=== PATIENT | female | born 1985 | race Caucasian/White ===

== ENCOUNTER → 2018-11-09 | Outpatient (CLI) | payer OTHER ==
--- NOTE | 2018-11-09 13:21 | US ---
EXAMINATION TYPE: US pelvic complete DATE OF EXAM: 11/09/2018 COMPARISON: NONE CLINICAL HISTORY: 33-year-old female Uterine fibroid D25.9. Pelvic pressure, known fibroids from US w hen patient was in [place], ablation 7 years ago TECHNIQUE: Transabdominal sonographic images of the pelvis were acquired. Date of LMP: 7 years ago FINDINGS: EXAM MEASUREMENTS: Uterus: 17.3 x 14.9 x 8.3 cm Endometrial Stripe: unable to discern Right Ovary: 2.6 x 2.4 x 1.6 cm Left Ovary: 2.9 x 2.1 x 2.3 cm 1. Uterus: Anteverted. Enlarged with multiple fibroids seen, measured 2 largest, right fundal fibr oids = 7.9cm and 6.9cm 2. Endometrium: unable to discern due to multiple shadowing fibroids 3. Right Ovary: wnl 4. Left Ovary: wnl 5. Bilateral Adnexa: wnl 6. Posterior cul-de-sac: wnl IMPRESSION: Bulky fibroid uterus with the 2 largest fibroids in the right fundus measuring up to 8 cm. The endome trial stripe is obscured and not assessed.
== END ==
LOC: RADUSWWP 10:50
PROVIDERS: ATTEND Obstetrics & Gynecology
DX: D25.9 Leiomyoma of uterus, unspecified (principal)
CPT/HCPCS: 76856

== ENCOUNTER → 2019-05-04 | Outpatient (CLI) | payer OTHER ==
[2019-05-04 13:22] LABS: Basophils % (A) 1 %; Eosinophils # (A) 0.2 k/uL (0-0.7); Eosinophils % (A) 2 %; HCT 43.1 % (34.0-46.0); HGB 14.1 gm/dL (11.4-16.0); Lymphocytes # (A) 2.7 k/uL (1.0-4.8); Lymphocytes % (A) 33 %; MCH 29.2 pg (25.0-35.0); MCHC 32.7 g/dL (31.0-37.0); MCV 89.2 fL (80.0-100.0); Mean Platelet Volume 7.6; Monocytes # (A) 0.4 k/uL (0-1.0); Monocytes % (A) 5 %; Neutrophils # (A) 4.7 k/uL (1.3-7.7); Neutrophils % (A) 57 %; Platelet Count 295 k/uL (150-450); RBC 4.83 m/uL (3.80-5.40); WBC 8.2 k/uL (3.8-10.6)
[2019-05-04 13:44] LABS: African American GFR (CKD) >90 (>60 ml/min/1.73 sqM); Anion Gap 10 mmol/L; Blood Urea Nitrogen 10 mg/dL (7-17); Calcium 9.6 mg/dL (8.4-10.2); Carbon Dioxide 23 mmol/L (22-30); Chloride 109 mmol/L (98-107); Glucose 93 mg/dL (74-99); Potassium 4.2 mmol/L (3.5-5.1); Sodium 142 mmol/L (137-145)
== END | disposition home or self-care (01) ==
LOC: LABPAT 12:37
PROVIDERS: ATTEND Obstetrics & Gynecology
DX: Z01.812 Encounter for preprocedural laboratory examination (principal)
CPT/HCPCS: 36415; 80048; 85025

== ENCOUNTER 2019-05-10 05:57 | Inpatient (IN) | payer OTHER ==
[2019-05-10] MEDS ORDERED: CLINDAMYCIN 900 MG in DEXTROSE 5% IN WATER 50 ML IVPB ONE ×2 (06:00)
[2019-05-10] MEDS ORDERED: GENTAMICIN 400 MG in SODIUM CHLORIDE 0.9% 100 ML IVPB ONE (06:00)
[2019-05-10] MEDS ORDERED: MIDAZOLAM 2 MG/2 ML VIAL IV PRN (06:04)
[2019-05-10] MEDS ORDERED: SCOPOLAMINE 1.5MG/72HR PATCH TRANSDERM ONE (06:04)
[2019-05-10] MEDS ORDERED: DEXAMETHASONE SOD PHOSPHATE 10 MG/ML 1 ML VIAL IV ONE (06:04)
[2019-05-10] MEDS ORDERED: ONDANSETRON 4 MG/2 ML VIAL IVP ONE (06:04)
[2019-05-10] MEDS ORDERED: HYDROmorphone 0.5 MG/0.5 ML SYRINGE IVP PRN (06:04)
[2019-05-10] MEDS ORDERED: LIDOCAINE 1% 20 ML VIAL (10MG/ML) FOR IV START INTRADERMA ONE (06:23)
[2019-05-10] MEDS: LACTATED RINGERS 1,000 ML IV SCH ×2 (06:29→21:48)
[2019-05-10] MEDS ORDERED: fentaNYL (PF) 50 MCG/ML 2 ML AMP IVP ONE (06:58)
--- NOTE | 2019-05-10 07:23 | P.HPOB ---
History of Present Illness H&P Date: 05/10/19 Chief Complaint: Fibroid uterus Patient is a 34-year-old female with an 18 week size uterus with heavy bleeding and discomfort. She is scheduled for total abdominal hysterectomy possible bilateral salpingo-oophorectomy due to same. She's had symptoms for a number of years and at this point is unable to continue to function well due to the heavy bleeding and discomfort. She did have a previous NovaSure with no significant relief of symptomatology. Her past medical history is otherwise unremarkable. Past surgical history prior tubal and section 2 as well as a D&C and a cholecystectomy. ALLERGIES to penicillin. Social history none. On physical exam vital signs stable afebrile. Heart regular, lungs clear, extremities without pain. Abdomen soft and nontender. Positive bowel sounds are noted. Uterus is grossly enlarged at 18 weeks' size. Assessment fibroid uterus. Plan total abdominal hysterectomy possible BSO. Past Medical History Past Medical History: Asthma Additional Past Medical History / Comment(s): uterine fibroids History of Any Multi-Drug Resistant Organisms: None Reported Past Surgical History: Section, Cholecystectomy, Uterine Ablation Additional Past Surgical History / Comment(s): c sect x2,wisdom teeth Past Anesthesia/Blood Transfusion Reactions: No Reported Reaction Additional Past Anesthesia/Blood Transfusion Reaction / Comment(s): no hx blood transfusion Smoking Status: Never smoker - Past Family History Mother Family Medical History: No Reported History Father Family Medical History: Cancer Additional Family Medical History / Comment(s): lung,brain Medications and Allergies Home Medications Medication Instructions Recorded Confirmed Type No Known Home Medications 04/29/19 05/10/19 History Allergies Allergy/AdvReac Type Severity Reaction Status Date / Time Penicillins Allergy Anaphylaxis Verified 05/10/19 06:32 shellfish derived Allergy per alg Verified 05/10/19 06:32 testing Exam Osteopathic Statement: *. No significant issues noted on an osteopathic structural exam other than those noted in the History and Physical/Consult. Vital Signs Temp Pulse Resp BP Pulse Ox 05/10/19 06:22 98.6 F 103 H 16 149/100 95
[2019-05-10] MEDS ORDERED: MORPHINE SULFATE (PF) 0.3 MG/0.3 ML SYR ONE (07:30)
[2019-05-10] MEDS ORDERED: PHENYLEPHRINE-0.9% NACL SYG 1 MG/10 ML SYRINGE ONE (07:30)
[2019-05-10] MEDS ORDERED: NEOSTIGMINE 1 MG/ML 10 ML VIAL ONE (07:30)
[2019-05-10] MEDS ORDERED: LIDOCAINE 1% INJ 10MG/ML (20 ML MDV) ONE (07:30)
[2019-05-10] MEDS ORDERED: GLYCOPYRROLATE 0.2 MG/ML 2 ML VIAL ONE (07:30)
[2019-05-10] MEDS ORDERED: PROPOFOL 10 MG/ML 20 ML VIAL IV ONE (07:30)
[2019-05-10] MEDS ORDERED: MIDAZOLAM 2 MG/2 ML VIAL ONE (07:30)
[2019-05-10] MEDS ORDERED: HYDROmorphone (PF) 1 MG/ML ONE (07:30)
[2019-05-10] MEDS ORDERED: fentaNYL (PF) 50 MCG/ML 2 ML AMP ONE (07:30)
[2019-05-10] MEDS ORDERED: ROCURONIUM BROMIDE 10 MG/ML 10 ML VIAL IV ONE (07:30)
[2019-05-10] MEDS ORDERED: NALBUPHINE 10 MG/ML (1 ML AMP) IV PRN (07:58)
[2019-05-10] MEDS ORDERED: NALOXONE 0.4 MG/ML 1 ML VIAL IV PRN (07:58)
[2019-05-10] MEDS ORDERED: KETOROLAC 30 MG/ML 1 ML VIAL IVP PRN (07:58)
[2019-05-10] MEDS ORDERED: ONDANSETRON 4 MG/2 ML VIAL IVP PRN ×2 (07:58→09:02)
[2019-05-10] MEDS ORDERED: LACTATED RINGERS 1,000 ML IV ONE (08:49)
[2019-05-10] MEDS ORDERED: SIMETHICONE 80 MG CHEWABLE PO PRN (09:02)
[2019-05-10] MEDS ORDERED: diphenhydrAMINE 50 MG/ML 1 ML VIAL IVP PRN (09:02)
[2019-05-10] MEDS ORDERED: HYDROcodone/APAP 7.5-325MG 1 EACH TAB PO PRN (09:04)
--- NOTE | 2019-05-10 09:09 | P.OP ---
Date of Procedure: 05/10/19 Preoperative Diagnosis: Fibroid uterus Postoperative Diagnosis: Same Procedure(s) Performed: Total abdominal hysterectomy with bilateral salpingectomy Anesthesia: MANAS Surgeon: Derek Johnson Waistline Joiner Lockstitch #1: Amairani Caballero Estimated Blood Loss (ml): 350 Pathology: other (Uterus cervix and fallopian tubes) Condition: stable Disposition: floor Operative Findings: Grossly enlarged fibroid uterus with bladder adherent high on the uterus from prior sections Description of Procedure: Patient was taken to the operating suite where a general anesthetic was found to be adequate. She was prepped and draped in the normal sterile fashion and placed in dorsal supine position. Initially a Pfannenstiel skin incision was made and this incision was then carried through to underlying layer of the fascia second knife. Fascia was then nicked in the midline and this opening was extended laterally with Streeter scissors. Superior and inferior aspect of this incision were then grasped tented up and bluntly and sharply dissected off the rectus muscles. Rectus muscles were then divided the midline and sharp dissection through the peritoneum was made. This opening was then extended superiorly and inferiorly with good visualization of both bowel bladder. The self-retaining retractor was then inserted and the bladder blade was placed. Once this was accomplished uterus was actually brought out of the pelvis as was so large. Long Yuni clamps were then used to clamp the adnexa bilaterally and Judith clamps then used to clamp over the initially the tubal segments followed by the utero-ovarian ligaments. Tissues then clamped the round ligaments and once this point we were able to start slowly and with very small progress bites along the lateral borders of the uterus to maintain at least relatively good hemostasis as the vascularity and the uterus were very large. Once we got down to the uterine vascularity I did enter the latter flap anteriorly and this was bluntly dissected out of the operative field following extension across face the uterus with Metzenbaum scissor. Once this was accomplished where able to get to the uterine vascularity along the lateral border of the uterus just below where the major fibroids were and this controlled the bleeding very well. Then moving inferiorly along the lateral borders we continued to go through the cardinal and uterosacral ligaments all the way until the vaginal cuff was entered. Once that cuff was entered the stitch was held on the corners and uterus and cervix were removed. Vaginal cuff was then closed with 0 Vicryl suture in a running locking fashion and excellent hemostasis was obtained. Pelvis was then thoroughly irrigated. No bleeding is noted. Bilaterally then the fallopian tubes were elevated with hemostat and clamped off with a Judith and then removed. This was closed with 0 Vicryl suture. Pelvis was then again irrigated and inspected. No bleeding is noted and urine is noted to be clear. All instruments are then removed. Peritoneal layer was then closed with 0 Vicryl suture. Fascial layer was closed with 0 Vicryl suture. One layer of 3-0 Vicryl was placed in deep subcuticular tissues to reapproximate the skin and close that space. Skin was then closed with jeffrey. Sponge, lap, needle counts were all correct 2. Patient was then taken to the recovery room in stable and satisfactory condition.
[2019-05-10 10:29] VITALS: BMI 35.4
[2019-05-10] MEDS: KETOROLAC 30 MG/ML 1 ML VIAL IVP PRN ×3 (10:29→22:16)
[2019-05-10] MEDS: SENNOSIDES-DOCUSATE SODIUM 1 EACH TAB PO SCH (21:27)
[2019-05-11] MEDS: KETOROLAC 30 MG/ML 1 ML VIAL IVP PRN ×2 (04:15→10:03)
[2019-05-11] MEDS: SENNOSIDES-DOCUSATE SODIUM 1 EACH TAB PO SCH ×2 (08:52→20:27)
--- NOTE | 2019-05-11 09:03 | P.PN ---
Progress Note - Text Progress Note Date: 05/11/19 Postop day 1. Patient is doing very well postop day 1. She is involuting and voiding. She is tolerating a diet. She has not passed flatus at this time but is voicing no complaints. Vital signs are stable afebrile. Heart regular, lungs clear, extremities without pain. We'll plan to remove dressing later today and continue with ambulation. All other questions are answered for her at this time area assessment postop day 1. Plan continue care with potential discharged home tomorrow.
[2019-05-11] MEDS ORDERED: IBUPROFEN 800 MG TAB PO PRN (09:04)
--- NOTE | 2019-05-11 10:57 | CDI ---
There are multiple fibroids present. several of which are sub-mucosal. there are also sub serosal fibroids present. the uterus was 18-20 weeks size. Documentation Clarification Form Date: 05/11/2019 10:24:20 AM From: Angelica Landis RN, CCDS Admit Date: 05/10/2019 5:57:00 AM Patient Name: Sarah Hernandez Visit Number: [id number] Discharge Date: ATTENTION: The Clinical Documentation Specialists (CDI) and [facility] Coding Staff appreciate your assistance in clarifying documentation. Please respond to the clarification below the line at the bottom and electronically sign. The CDI & [facility] Coding staff will review the response and follow-up if needed. Please note: Queries are made part of the Legal Health Record. If you have any questions, please contact the author of this message via ITS. Dr. Derek Johnson The patient presented with a preoperative diagnosis of fibroid uterus, and they are generally classified by their location. History/Risk Factors: Uterine Fibroids, Asthma Clinical Indicators: 34-year-old female with an 18 week size uterus with heavy bleeding and discomfort. She's had symptoms for a number of years and present for an elective total abdominal hysterectomy, bilateral salpingo-oophorectomy. Vital Signs: 129/82 72 20 97.2 96 % RA Treatment: Total abdominal hysterectomy with bilateral salpingectomy Monitor Vital signs Toradol IV Prn In your professional opinion, to accurately code the procedure can you please further clarify the location of the uterine fibroids as? Interstitial, Intramural Submucous Subperitoneal Subserosal Other, please specify Unable to determine (Last Revision: February 2018) MTDD
--- NOTE | 2019-05-11 11:33 | P.PN ---
Progress Note - Text Progress Note Date: 05/11/19 05/11/2019 0630 Patient is POD #1 QUINN/BSO with SAB Duramorph and GA/OETT Patient sitting up in bed without any complaints. VAS 2-3/10 and relieved with Toradol 30 mg IVP Patient denies any fever/chills, paresthesias, residual numbness and/or back pain Patient satisfied with anesthesia for her surgical repair and pleased with her pain control/pain relief To be discharged to home on 05/12/19 Will follow up as indicated.
[2019-05-11 11:55] LABS: Basophils % (A) 0 %; Eosinophils # (A) 0.1 k/uL (0-0.7); Eosinophils % (A) 1 %; HCT 31.6 % (34.0-46.0); Lymphocytes # (A) 1.8 k/uL (1.0-4.8); Lymphocytes % (A) 19 %; MCH 31.3 pg (25.0-35.0); MCHC 34.7 g/dL (31.0-37.0); MCV 90.2 fL (80.0-100.0); Mean Platelet Volume 7.6; Monocytes # (A) 0.6 k/uL (0-1.0); Monocytes % (A) 6 %; Neutrophils # (A) 6.9 k/uL (1.3-7.7); Neutrophils % (A) 72 %; Platelet Count 184 k/uL (150-450); RDW 13.7 % (11.5-15.5); WBC 9.5 k/uL (3.8-10.6)
[2019-05-12] MEDS: IBUPROFEN 400 MG TAB PO PRN ×2 (03:04→09:05)
[2019-05-12 04:20] VITALS: TEMP 97.7
[2019-05-12] MEDS: LACTATED RINGERS 1,000 ML IV SCH (07:20)
[2019-05-12] MEDS: SENNOSIDES-DOCUSATE SODIUM 1 EACH TAB PO SCH (08:20)
[2019-05-12 08:38] VITALS: BP 137/85; PULSE 85; RESP 16
--- NOTE | 2019-05-12 08:48 | P.DS ---
Providers Date of admission: 05/10/19 05:57 Expected date of discharge: 05/12/19 Attending physician: Derek Johnson Primary care physician: Stated None Hospital Course: Patient is doing very well postop day 2. She is involuting, voiding and tolerating her diet. She voices no complaints. Vital signs stable and afebrile. Heart regular, lungs clear, extremities without pain. Abdomen soft nontender incision is clean dry and intact. Assessment postop day 2. Plan discharged home follow up with me in 1 week. All questions are answered for this time. Prescription for Motrin and [place] are provided. Patient Condition at Discharge: Good Plan - Discharge Summary Discharge Rx Participant: Yes New Discharge Prescriptions: New Ibuprofen [Motrin] 600 mg PO Q6HR PRN #30 tab PRN Reason: Pain HYDROcodone/APAP 5-325MG [[place] 5-325] 1 tab PO Q4HR PRN #30 tab PRN Reason: Pain Discharge Medication List HYDROcodone/APAP 5-325MG [[place] 5-325] 1 tab PO Q4HR PRN #30 tab 05/12/19 [Rx] Ibuprofen [Motrin] 600 mg PO Q6HR PRN #30 tab 05/12/19 [Rx] Follow up Appointment(s)/Referral(s): Derek Johnson DO [Doctor of Osteopathic Medicine] - 1 Week Activity/Diet/Wound Care/Special Instructions: No heavy lifting, limit stairs and driving, and complete pelvic rest. If any high temperatures, heavy bleeding or severe pain call my office
== END 2019-05-12 10:14 | disposition home or self-care (01) | DRG 743 ==
LOC: 2ORMAIN 05:57 → 6PED 09:05
PROVIDERS: ADMIT Obstetrics & Gynecology; ATTEND Obstetrics & Gynecology
PROC: 0UT70ZZ Resection of Bilateral Fallopian Tubes, Open Approach (ICD-10-PCS; 2019-05-10)
PROC: 0UT90ZZ Resection of Uterus, Open Approach (ICD-10-PCS; principal; 2019-05-10 07:30)
DX: D25.0 Submucous leiomyoma of uterus (principal); D25.2 Subserosal leiomyoma of uterus; J45.909 Unspecified asthma, uncomplicated; N93.8 Other specified abnormal uterine and vaginal bleeding; Z88.0 Allergy status to penicillin; Z98.891 History of uterine scar from previous surgery; Z91.013 Allergy to seafood; Z90.49 Acquired absence of other specified parts of digestive tract; Z80.9 Family history of malignant neoplasm, unspecified
CPT/HCPCS: 81025; 85025; 86850; 86900; 86901; 88307; 94760

== ENCOUNTER 2024-09-13 08:09 | Emergency (ER) | payer OTHER ==
[2024-09-13 08:15] VITALS: RESP 18
[2024-09-13 09:06] LABS: Basophils % (A) 0 %; Eosinophils # (A) 0.2 k/uL (0-0.7); Eosinophils % (A) 2 %; HCT 44.5 % (34.0-46.0); HGB 14.4 gm/dL (11.4-16.0); Lymphocytes # (A) 2.2 k/uL (1.0-4.8); Lymphocytes % (A) 21 %; MCH 29.9 pg (25.0-35.0); MCHC 32.5 g/dL (31.0-37.0); MCV 92.3 fL (80.0-100.0); Mean Platelet Volume 7.4; Monocytes # (A) 0.4 k/uL (0-1.0); Monocytes % (A) 4 %; Neutrophils # (A) 7.4 k/uL (1.3-7.7); Neutrophils % (A) 70 %; Platelet Count 253 k/uL (150-450); RBC 4.82 m/uL (3.80-5.40); RDW 13.1 % (11.5-15.5); WBC 10.5 k/uL (3.8-10.6)
[2024-09-13 09:14] LABS: INR 0.9 (<1.2); Prothrombin Time 9.8 sec (10.0-12.5)
[2024-09-13] MEDS: SODIUM CHLORIDE 0.9% 1,000 ML IV STA (09:17)
[2024-09-13 09:18] LABS: Appearance,Urine Clear (Clear); Bilirubin,Urine Negative (Negative); Blood,Urine Negative (Negative); Color,Urine Colorless; Glucose,Urine (UA) Negative (Negative); Ketones,Urine Negative (Negative); Leukocyte Esterase,Urine Negative (Negative); Nitrite,Urine Negative (Negative); PH, Urine 6.5 (5.0-8.0); Protein,Urine Negative (Negative); Specific Gravity,Urine 1.011 (1.001-1.035); Urobilinogen,Urine <2.0 mg/dL (<2.0)
[2024-09-13] MEDS: MECLIZINE 12.5 MG TAB PO STA (09:18)
--- NOTE | 2024-09-13 09:18 | ED ---
Dizziness HPI - General Chief Complaint: Dizziness Stated Complaint: Dizziness Time Seen by Provider: 09/13/24 08:15 Source: patient, RN notes reviewed Mode of arrival: ambulatory Limitations: no limitations - History of Present Illness Initial Comments: This is a 39-year-old female who presents to the emergency department for dizziness. Patient states that 2 days ago she had some mild dizziness and when she woke up the following day it was much more substantial. This is described as a room spinning sensation that is worse with positional changes. She has associated nausea. States that she almost feels like she is intoxicated when she is not. Denies any headaches, chest pain, or shortness of breath. Denies any URI symptoms or history of vertigo. Blood pressure noted to be substantially elevated on arrival. Not currently taking anything for blood pressure. States that it is usually high when she is seen in a healthcare setting. MD Complaint: dizziness - Related Data Home Medications Medication Instructions Recorded Confirmed Cetirizine HCl [Zyrtec] 10 mg PO DAILY 09/13/24 09/13/24 Cyanocobalamin (Vitamin B-12) 1,000 mcg PO DAILY 09/13/24 09/13/24 [Vitamin B-12] Ferrous Sulfate [Feosol] 325 mg PO DAILY 09/13/24 09/13/24 Multivitamins, Thera [Multivitamin 1 tab PO DAILY 09/13/24 09/13/24 (formulary)] Previous Rx's Medication Instructions Recorded Meclizine HCl [Dramamine] 25 mg PO QID PRN #30 tab 09/13/24 Metoclopramide [Reglan] 10 mg PO Q6H PRN #30 tab 09/13/24 Ondansetron Odt [Zofran Odt] 4 mg PO Q8HR PRN #20 tab 09/13/24 Allergies Allergy/AdvReac Type Severity Reaction Status Date / Time Penicillins Allergy Anaphylaxis Verified 09/13/24 10:06 shellfish derived Allergy per alg Verified 09/13/24 10:06 testing Review of Systems ROS Statement: Those systems with pertinent positive or pertinent negative responses have been documented in the HPI. ROS Other: All systems not noted in ROS Statement are negative. Past Medical History Past Medical History: Asthma Additional Past Medical History / Comment(s): uterine fibroids History of Any Multi-Drug Resistant Organisms: None Reported Past Surgical History: Section, Cholecystectomy, Hysterectomy, Uterine Ablation Additional Past Surgical History / Comment(s): c sect x2,wisdom teeth Past Anesthesia/Blood Transfusion Reactions: No Reported Reaction Additional Past Anesthesia/Blood Transfusion Reaction / Comment(s): no hx blood transfusion Past Psychological History: No Psychological Hx Reported Smoking Status: Never smoker Past Alcohol Use History: Rare Past Drug Use History: None Reported - Past Family History Mother Family Medical History: No Reported History Father Family Medical History: Cancer Additional Family Medical History / Comment(s): lung,brain General Exam Limitations: no limitations General appearance: alert, in no apparent distress Head exam: Present: atraumatic, normocephalic, normal inspection Eye exam: Present: normal appearance, PERRL, EOMI. Absent: scleral icterus, conjunctival injection, periorbital swelling Respiratory exam: Present: normal lung sounds bilaterally. Absent: respiratory distress, wheezes, rales, rhonchi, stridor Cardiovascular Exam: Present: regular rate, normal rhythm, normal heart sounds. Absent: systolic murmur, diastolic murmur, rubs, gallop, clicks Neurological exam: Present: alert, oriented X3, CN II-XII intact, other (Negative HINTS exam) Psychiatric exam: Present: normal affect, normal mood Skin exam: Present: warm, dry, intact, normal color. Absent: rash Course Vital Signs 09/13/24 09/13/24 09/13/24 08:11 09:10 09:15 Temperature 97.6 F 98.1 F Pulse Rate 104 H 97 90 Pulse Rate [ Right Sitting Pulse Oximetery ] Pulse Rate [ Right Standing Pulse Oximetery ] Pulse Rate [ Right Supine Pulse Oximetery ] Respiratory 18 18 18 Rate Blood Pressure 202/117 228/120 191/104 Blood Pressure [Left Arm Sitting] Blood Pressure [Left Arm Standing] Blood Pressure [Left Arm Supine] O2 Sat by Pulse 98 99 99 Oximetry 09/13/24 09/13/24 09/13/24 10:00 10:20 10:30 Temperature 98.0 F Pulse Rate 92 Pulse Rate [ Right Sitting Pulse Oximetery ] Pulse Rate [ Right Standing Pulse Oximetery ] Pulse Rate [ Right Supine Pulse Oximetery ] Respiratory 18 Rate Blood Pressure 165/106 170/99 158/94 Blood Pressure [Left Arm Sitting] Blood Pressure [Left Arm Standing] Blood Pressure [Left Arm Supine] O2 Sat by Pulse 99 Oximetry 09/13/24 09/13/24 09/13/24 11:05 12:00 12:10 Temperature 98.3 F Pulse Rate 96 Pulse Rate [ 92 Right Sitting Pulse Oximetery ] Pulse Rate [ 87 Right Standing Pulse Oximetery ] Pulse Rate [ 89 Right Supine Pulse Oximetery ] Respiratory 18 Rate Blood Pressure 177/110 177/110 Blood Pressure 173/109 [Left Arm Sitting] Blood Pressure 172/106 [Left Arm Standing] Blood Pressure 172/105 [Left Arm Supine] O2 Sat by Pulse 98 Oximetry Medical Decision Making - Medical Decision Making This is a 39 year old female who [facility]. Was pt. sent in by a medical professional or institution? @ -No Did you speak to anyone other than the patient for history? @ -No Did you review nursing and triage notes? @ -Yes, and I agree, it is accurate with regards to the patient's symptoms. Were old charts reviewed? @ -No Differential Diagnosis? @ -Differential Dizziness: Benign paroxysmal positional Vertigo, Meniere's disease, otitis media, acoustic neuroma, vertebrobasilar insufficiency, cerebellar stroke, encephalitis, hypovolemic, arrhythmia, coronary artery syndrome, anemia, this is not meant to be an all-inclusive list EKG interpreted by me (3pts min.)? @ -EKG interpreted by me demonstrating the following: Sinus rhythm. Ventricular rate 91 bpm, ME interval 164 ms, QRS duration 102 ms, QTc 434 ms. X-rays interpreted by me (1pt min.)? @ -Not obtained CT interpreted by me (1pt min.)? @ -CT scan of the brain obtained. My interpretation identifies no evidence of an acute intracranial hemorrhage. CTA of the head and neck obtained. My interpretation identifies no evidence of an aneurysm. U/S interpreted by me (1pt. min.)? @ -Not obtained What testing was considered but not performed? (CT, X-rays, U/S, labs)? Why? @ -None What meds were considered but not given? Why? @ -None Did you discuss the management of the patient with other professionals? @ -No Did you reconcile home meds? @ -No Was smoking cessation discussed for >3mins.? @ -No Was critical care preformed (if so, how long)? @ -No Were there social determinants of health that impacted care today? How? (Homelessness, low income, unemployed, alcoholism, drug addiction, transportation, low edu. Level, literacy, decrease access to med. care, correction, rehab)? @ -No Was there de-escalation of care discussed even if they declined? (Discuss DNR or withdrawal of care, Hospice)? @ -No What co-morbidities impacted this encounter? (DM, HTN, Smoking, COPD, CAD, Cancer, CVA, Hep., AIDS, mental health diagnosis, sleep apnea, morbid obesity)? @ -None Was patient admitted / discharged? @ -Discharged. Lab work unremarkable. Urinalysis negative for signs of infection. HINTS exam negative. However, we did proceed with imaging due to her symptoms in association with the elevation of her blood pressure. CT scan of the brain and CTA of the head and neck obtained revealing no acute process. Orthostatics negative. Symptoms treated with IV fluids, meclizine, Reglan, and Zofran. She did have improvement in symptoms afterwards. Discussed that symptoms are likely related to vertigo. Prescription for meclizine, Reglan, and Zofran provided. We also discussed the half somersault maneuver. Advised slow position changes and close follow-up with her primary care provider. Patient discharged home in stable condition. Case discussed with ED attending Dr. Arroyo. Return precautions reviewed in depth, the patient is instructed to return to the emergency department with any new, worsening, or concerning symptoms. Patient verbalized understanding. Undiagnosed new problem with uncertain prognosis? @ -None Drug Therapy requiring intensive monitoring for toxicity (Heparin, Nitro, Insulin, Cardizem)? @ -None Were any procedures done? @ -None Diagnosis/symptom? @ -BPPV Acute, or Chronic, or Acute on Chronic? @ -Acute Uncomplicated (without systemic symptoms) or Complicated (systemic symptoms)? @ -Uncomplicated Side effects of treatment? @ -None Exacerbation, Progression, or Severe Exacerbation] @ -Not applicable Poses a threat to life or bodily function? @ -No - Lab Data Result diagrams: 09/13/24 09:00 09/13/24 09:00 Lab Results 09/13/24 09/13/24 09/13/24 Range/Units 09:00 09:00 09:00 WBC 10.5 (3.8-10.6) k/uL RBC 4.82 (3.80-5.40) m/uL Hgb 14.4 (11.4-16.0) gm/dL Hct 44.5 (34.0-46.0) % MCV 92.3 (80.0-100.0) fL MCH 29.9 (25.0-35.0) pg MCHC 32.5 (31.0-37.0) g/dL RDW 13.1 (11.5-15.5) % Plt Count 253 (150-450) k/uL MPV 7.4 Neutrophils % 70 % Lymphocytes % 21 % Monocytes % 4 % Eosinophils % 2 % Basophils % 0 % Neutrophils # 7.4 (1.3-7.7) k/uL Lymphocytes # 2.2 (1.0-4.8) k/uL Monocytes # 0.4 (0-1.0) k/uL Eosinophils # 0.2 (0-0.7) k/uL Basophils # 0.0 (0-0.2) k/uL PT 9.8 L (10.0-12.5) sec INR 0.9 (<1.2) Sodium 141 (137-145) mmol/L Potassium 3.9 (3.5-5.1) mmol/L Chloride 107 (98-107) mmol/L Carbon Dioxide 23 (22-30) mmol/L Anion Gap 11 mmol/L BUN 10 (7-17) mg/dL Creatinine 0.80 (0.52-1.04) mg/dL Est GFR (CKD-EPI)AfAm >90 (>60 ml/min/1.73 sqM) Est GFR (CKD-EPI)NonAf >90 (>60 ml/min/1.73 sqM) Glucose 106 H (74-99) mg/dL Calcium 9.3 (8.4-10.2) mg/dL Total Bilirubin 0.6 (0.2-1.3) mg/dL AST 63 H (14-36) U/L ALT 92 H (4-34) U/L Alkaline Phosphatase 80 (38-126) U/L Troponin I (0.000-0.034) ng/mL Total Protein 8.0 (6.3-8.2) g/dL Albumin 4.7 (3.5-5.0) g/dL Urine Color Urine Appearance (Clear) Urine pH (5.0-8.0) Ur Specific [place] (1.001-1.035) Urine Protein (Negative) Urine Glucose (UA) (Negative) Urine Ketones (Negative) Urine Blood (Negative) Urine Nitrite (Negative) Urine Bilirubin (Negative) Urine Urobilinogen (<2.0) mg/dL Ur Leukocyte Esterase (Negative) 09/13/24 09/13/24 Range/Units 09:00 09:08 WBC (3.8-10.6) k/uL RBC (3.80-5.40) m/uL Hgb (11.4-16.0) gm/dL Hct (34.0-46.0) % MCV (80.0-100.0) fL MCH (25.0-35.0) pg MCHC (31.0-37.0) g/dL RDW (11.5-15.5) % Plt Count (150-450) k/uL MPV Neutrophils % % Lymphocytes % % Monocytes % % Eosinophils % % Basophils % % Neutrophils # (1.3-7.7) k/uL Lymphocytes # (1.0-4.8) k/uL Monocytes # (0-1.0) k/uL Eosinophils # (0-0.7) k/uL Basophils # (0-0.2) k/uL PT (10.0-12.5) sec INR (<1.2) Sodium (137-145) mmol/L Potassium (3.5-5.1) mmol/L Chloride (98-107) mmol/L Carbon Dioxide (22-30) mmol/L Anion Gap mmol/L BUN (7-17) mg/dL Creatinine (0.52-1.04) mg/dL Est GFR (CKD-EPI)AfAm (>60 ml/min/1.73 sqM) Est GFR (CKD-EPI)NonAf (>60 ml/min/1.73 sqM) Glucose (74-99) mg/dL Calcium (8.4-10.2) mg/dL Total Bilirubin (0.2-1.3) mg/dL AST (14-36) U/L ALT (4-34) U/L Alkaline Phosphatase (38-126) U/L Troponin I <0.012 (0.000-0.034) ng/mL Total Protein (6.3-8.2) g/dL Albumin (3.5-5.0) g/dL Urine Color Colorless Urine Appearance Clear (Clear) Urine pH 6.5 (5.0-8.0) Ur Specific [place] 1.011 (1.001-1.035) Urine Protein Negative (Negative) Urine Glucose (UA) Negative (Negative) Urine Ketones Negative (Negative) Urine Blood Negative (Negative) Urine Nitrite Negative (Negative) Urine Bilirubin Negative (Negative) Urine Urobilinogen <2.0 (<2.0) mg/dL Ur Leukocyte Esterase Negative (Negative) - Radiology Data Radiology results: report reviewed, image reviewed Disposition Clinical Impression: BPPV (benign paroxysmal positional vertigo) Disposition: HOME SELF-CARE Instructions (If sedation given, give patient instructions): Vertigo (ED), Benign Paroxysmal Positional Vertigo (ED), Dizziness (ED) Additional Instructions: Return to the emergency department with any new, worsening, or concerning symptoms. Take the meclizine up to 4 times daily as needed for feelings of vertigo. The Reglan can be taken up to 4 times daily to help with both nausea and feelings of vertigo. The Zofran can be taken up to every 8 hours to help with nausea and vomiting. You can also look up the half somersault maneuver by Dr. Shonda Mullins on YouTube as an additional treatment option. Follow up with your primary care provider in 1-2 days. Prescriptions: Meclizine HCl [Dramamine] 25 mg PO QID PRN #30 tab PRN Reason: Vertigo Metoclopramide [Reglan] 10 mg PO Q6H PRN #30 tab PRN Reason: Nausea And Vomiting Ondansetron Odt [Zofran Odt] 4 mg PO Q8HR PRN #20 tab PRN Reason: Nausea And Vomiting Is patient prescribed a controlled substance at d/c from ED?: No Referrals: Michelle Cabrera DO [Primary Care Provider] - 1-2 days Time of Disposition: 11:27
[2024-09-13] MEDS: METOCLOPRAMIDE 5 MG/ML 2 ML VIAL IVP STA (09:19)
[2024-09-13] MEDS: ONDANSETRON 4 MG/2 ML VIAL IVP STA (09:19)
[2024-09-13 09:24] LABS: ALT 92 U/L (4-34); AST 63 U/L (14-36); African American GFR (CKD) >90 (>60 ml/min/1.73 sqM); Albumin 4.7 g/dL (3.5-5.0); Alkaline Phosphatase 80 U/L (38-126); Anion Gap 11 mmol/L; Blood Urea Nitrogen 10 mg/dL (7-17); Calcium 9.3 mg/dL (8.4-10.2); Carbon Dioxide 23 mmol/L (22-30); Chloride 107 mmol/L (98-107); Glucose 106 mg/dL (74-99); Non-African American GFR(CKD) >90 (>60 ml/min/1.73 sqM); Potassium 3.9 mmol/L (3.5-5.1); Sodium 141 mmol/L (137-145); Total Bilirubin 0.6 mg/dL (0.2-1.3)
[2024-09-13] MEDS: diphenhydrAMINE 50 MG/ML 1 ML VIAL IVP STA (09:49)
[2024-09-13] MEDS: FAMOTIDINE 20 MG/2 ML VIAL IV STA (09:50)
[2024-09-13] MEDS: methylPREDNISolone SOD SUCCI 125 MG/2 ML VIAL IV STA (09:52)
--- NOTE | 2024-09-13 10:35 | CT ---
EXAMINATION TYPE: CT brain wo con CT DLP: 1121.6 mGycm, Automated exposure control for dose reduction was used. DATE OF EXAM: 09/13/2024 10:26 AM COMPARISON: None. CLINICAL INDICATION:Female, 39 years old with history of Dizziness, hypertension, Dizziness, hyperten leonor TECHNIQUE: Brain: Multiple axial CT images of the brain were obtained without IV contrast. . Coronal and sagitta l reformats reviewed. FINDINGS: Brain: Extra-axial spaces: No abnormal extra-axial fluid collections. Ventricular system: Within normal limits Cerebral parenchyma: No acute intraparenchymal hemorrhage or mass effect. The hernandes-white junction is well differentiated. Cerebellum: Unremarkable. Mass effect: No evidence of midline shift. Intracranial vasculature: unremarkable Soft tissues: Normal. Calvarium/osseous structures: No depressed skull fracture. Paranasal sinuses and mastoid air cells: Clear Visualized orbits: Orbital contents are intact. IMPRESSION: No acute intracranial process. [facility], , 09/13/2024 10:32 AM
--- NOTE | 2024-09-13 10:58 | CT ---
EXAMINATION TYPE: CT angio head neck CT DLP: 834.8 mGycm, Automated exposure control for dose reduction was used. DATE OF EXAM: 09/13/2024 10:47 AM COMPARISON: CT brain of the same date. CLINICAL INDICATION:Female, 39 years old with history of Dizziness, hypertension; PHH, Dizziness, hyp ertension TECHNIQUE: Axially acquired helical CT angiogram of the head and neck was obtained with contrast util izing 75 cc of Isovue-370 administered intravenously. Axial images are supplemented with 3D reconstru ctions which were post-processed at an independent workstation. NASCET criteria used. FINDINGS: CTA HEAD: No evidence of acute intracranial hemorrhage, mass effect, or midline shift. The ventricles, sulci, a nd cisterns are unremarkable. The visualized portions of the internal carotid arteries, middle cerebral arteries, anterior cerebral arteries, and posterior cerebral arteries are patent. The basilar and vertebral arteries are patent. CTA NECK: Right Carotid System: The common carotid artery and external carotid artery are patent. The carotid bifurcation demonstrate s no evidence of hemodynamically significant stenosis. The remaining portions of the internal carotid artery demonstrate normal size without significant narrowing. Left Carotid System: The common carotid artery and external carotid artery are patent. The carotid bifurcation demonstrate s no evidence of hemodynamically significant stenosis. The remaining portions of the internal carotid artery demonstrate normal size without significant narrowing. Vertebral arteries are patent without evidence hemodynamically significant stenosis. Left vertebral a rtery is dominant. There is a bovine aortic arch. The origins of the great vessels are patent. No evidence of hemodynami laurie significant stenosis. Bilateral prominent jugular lymph nodes with largest on the right measuring 8 mm short axis (series 4 01, image 100) and largest on the left measuring 9 mm short axis (series 401, image 101). IMPRESSION: 1. No evidence of dissection of the cervical internal carotid arteries or vertebral arteries or any e vidence of significant stenosis at the carotid bifurcations. 2. No evidence of high-grade stenosis or intracranial aneurysm. 3. Mild prominent nonspecific bilateral jugular lymph nodes which may be reactive. [facility], , 09/13/2024 10:56 AM
[2024-09-13 12:02] VITALS: BP 177/110; PULSE 96; TEMP 98.3
[2024-09-13] MEDS: SCOPOLAMINE 1 MG/72 HR PATCH TRANSDERM STA (12:03)
== END 2024-09-13 12:21 | disposition home or self-care (01) ==
LOC: EC 08:09
CPT/HCPCS: 36415; 70450; 70496; 70498; 80053; 81003; 84484; 85025; 85610; 93005; 96361; 96374; 96375; 99284